=== PATIENT | female | born 1945 | race Caucasian/White ===

== ENCOUNTER → 2017-04-08 | Outpatient (CLI) | payer MEDICARE, OTHER ==
[~2017-04-08] MED LIST: ARTI99.0 OU; ATOR1TAB21 PO; BENI1TAB PO; BUPR15TASR PO; BUPR1TAB53 PO; BUSP10TA PO; CALCTAB68 PO; CRAN200C PO; CYMB60CA3 PO; DIVA250T7 PO; FLOM5CAP PO; METF500T13 PO; NORCOTAB PO; OCUVTAB PO; OMEP20CA3 PO; VITA500C24 PO; platform walker
--- NOTE | 2017-04-08 14:03 | REPMRS ---
Patient History The patient states she had a clinical breast exam in 12/09 Patient is postmenopausal. No known family history of cancer. Digital Woman Screen Mammo: April 08, 2017 - Exam #: [id number] Bilateral CC and MLO view(s) were taken. Technologist: Millie Estrada, Technologist Prior study comparison: July 09, 2015, digital woman screen mammo performed at [facility] to [facility]. March 19, 2014, digital woman screen mammo performed at [facility]. June 30, 2012, digital woman screen mammo performed at [facility] to [facility]. FINDINGS: There are scattered fibroglandular densities. There has been no change in the appearance of the mammogram from the prior studies. There is a mild amount of scattered fibroglandular density which is fairly symmetric. There is no interval development of dominant mass, architectural distortion, or clustered microcalcification suggestive of malignancy. ASSESSMENT: BI-RADS/ACR category 1 mammogram. Negative. Recommendation Routine screening mammogram in 1 year (for women over age 40). This mammogram was interpreted with the aid of an FDA-approved computer-aided dectection system. Electronically Signed By: Francisco Robles MD 04/08/17 0288
== END ==
LOC: M WHC 13:00
PROVIDERS: ATTEND Family Medicine
DX: Z12.31 Encounter for screening mammogram for malignant neoplasm of breast (principal); Z78.0 Asymptomatic menopausal state

== ENCOUNTER → 2018-04-12 | Outpatient (CLI) | payer MEDICARE, OTHER | LOC: M WHC 09:13 | DX: Z12.31 Encounter for screening mammogram for malignant neoplasm of breast (principal); M84.80 Other disorders of continuity of bone, unspecified site; Z78.0 Asymptomatic menopausal state | CPT/HCPCS: 77067 ==

== ENCOUNTER → 2018-04-15 | Outpatient (REF) | payer MEDICARE, OTHER ==
[2018-04-15 14:14] LABS: APPEARANCE, URINE CLEAR (CLEAR); BACTERIA, URINE AUTO NEGATIVE (NEGATIVE); BILIRUBIN, URINE AUTO NEGATIVE (NEGATIVE); BLOOD, URINE BLOOD NEGATIVE (NEGATIVE); COLOR, URINE YELLOW (YELLOW); GLUCOSE, URINE (UA) AUTO NEGATIVE (NEGATIVE); KETONE, URINE AUTO NEGATIVE (NEGATIVE); LEUKOCYTE ESTERASE, URINE AUTO NEGATIVE (NEGATIVE); NITRITE, URINE AUTO NEGATIVE (NEGATIVE); PROTEIN, URINE AUTO NEGATIVE (NEGATIVE); RBC, URINE AUTO 0 /HPF (0-3); SPECIFIC GRAVITY URINE AUTO 1.008 (1.002-1.035); SQUAMOUS EPITHELIAL CELL UR AU 0 /HPF (0-6); UROBILINOGEN, URINE AUTO 0.2 mg/dL (0.0-2.0); WBC, URINE AUTO 0 /HPF (0-3)
== END ==
LOC: M SMT 13:27
DX: R39.15 Urgency of urination (principal)
CPT/HCPCS: 81001

== ENCOUNTER → 2018-05-10 | Outpatient (CLI) | payer MEDICARE, OTHER | LOC: M RAD 08:14 | DX: N31.9 Neuromuscular dysfunction of bladder, unspecified (principal) | CPT/HCPCS: 76775 ==

== ENCOUNTER → 2018-10-07 | Outpatient (CLI) | payer MEDICARE, OTHER ==
[~2018-10-07] MED LIST changes: -BENI1TAB PO; +BENI1TAB3 PO; +FLOM0.4C39 PO; -FLOM5CAP PO
--- NOTE | 2018-10-07 15:00 | NUR ---
Pt seen for modified barium swallow study as she reports feeling like things are getting stuck (pointed to upper esophageal area. Pt also reported esophageal dilation approximately 3 years ago but this jingle writer is unable to find documentation. Pt presents with adequate oral and pharyngeal phase swallow function. However, observed residue at the upper esophagus. MD please consider GI consult d/t observed upper esophageal residue. Pt has indicated that she has not participated in GERD education (diet, behaviors, GERD facts). Pt would benefit from 2-3 sessions to address information directly related to GERD management. Addendum: 10/10/18 at 0840 by JARED BEAN NETTIE Amended: Links added.
--- NOTE | 2018-10-07 18:21 | REP ---
COOKIE SWALLOW The procedure was performed under the direct supervision of Dr. Stinson. The procedure was performed with Libia Dawn from speech pathology present. 5 ml aliquots of thin, pudding, mixed fruit, solid and a barium pill was administered. There is no evidence of penetration or aspiration. The detailed report of this examination will be provided by speech pathology. 1.5 minutes of fluoroscopy time was utilized for this procedure. Reviewed by EVA Dee 10/07/2018 04:12 P Electronically Signed by Ross Stinson MD 10/07/2018 06:13 P
== END ==
LOC: M ST 13:31 → EDSTATUS 14:00
PROVIDERS: ATTEND Physician Assistant Medical
DX: R13.10 Dysphagia, unspecified (principal)

== ENCOUNTER 2018-11-15 09:00 | Day surgery (SDC) | payer MEDICARE, OTHER ==
[~2018-11-15] VITALS: Ht 152.4 cm; Wt 68.9 kg
[~2018-11-15 09:00] MED LIST changes: +AMLO25TA PO; +BARIUM SULFATE 700 MG TABLET (E-Z-DISK) As Ordered ONE; +CVS400CA PO; +E-Z-PAQUE 96% w/w SUSP 176GM BTL As Ordered ONE; +HYDR-3715 PO; +NEPHTAB2 PO; -NORCOTAB PO; +PROPOFOL 500 MG/50 ML VIAL As Ordered ONE; +VARIBAR NECTAR 40% w/v 240ML SUSP BTL As Ordered ONE; +VARIBAR PUDDING 40% w/v 230ML TUBE As Ordered ONE
[2018-11-15] MEDS ORDERED: NS 1,000 ML IV ONE (09:45)
[2018-11-15] MEDS ORDERED: LIDOCAINE 2% INJ 100 MG/5 ML SDV (FOR ANES.) As Ordered ONE (10:51)
--- NOTE | 2018-11-15 10:54 | ROOR ---
Patient Name: Angelic Grove Procedure Date: 11/15/2018 10:37 AM Date of : 1945 Age: 73 Room: [facility] Gender: Female Note Status: Finalized Procedure: Upper GI endoscopy Indications: Oropharyngeal phase dysphagia, Heartburn (Previous empiric cricopharyngeal dilation with 54F Argueta dilator was ineffective (2015)) Providers: Nuno RESENDEZ MD Referring MD: CARMEN HERNANDEZ Requesting Provider: Medicines: Monitored Anesthesia Care Complications: No immediate complications. Procedure: Pre-Anesthesia Assessment: - The heart rate, respiratory rate, oxygen saturations, blood pressure, adequacy of pulmonary ventilation, and response to care were monitored throughout the procedure. The Endoscope was introduced through the mouth, and advanced to the second part of duodenum. The upper GI endoscopy was accomplished without difficulty. The patient tolerated the procedure well. Findings: Very small (insignificant) Hiatal Hernia. The esophagus was normal. The stomach was normal. The examined duodenum was normal. No endoscopic abnormality was evident in the esophagus to explain the patient's complaint of dysphagia. Impression: - Very small (insignificant) Hiatal Hernia. - Normal esophagus. - Normal stomach. - Normal examined duodenum. - No endoscopic esophageal abnormality to explain patient's dysphagia. - No specimens collected. Recommendation: - Use Prilosec (omeprazole) 40 mg PO BID for 3 months. - Observe patient's clinical course. - I anticipate no further need for intervention. Nuno Resendez MD Nuno RESENDEZ MD 11/15/2018 10:53:53 AM Electronically signed by Nuno RESENDEZ MD Number of Addenda: 0 Note Initiated On: 11/15/2018 10:37 AM Estimated Blood Loss: Estimated blood loss: none.
--- NOTE | 2018-11-15 11:12 | ROOR ---
Patient Name: Angelic Grove Procedure Date: 11/15/2018 10:38 AM Date of : 1945 Age: 73 Room: [facility] Gender: Female Note Status: Finalized Procedure: Colonoscopy Indications: High risk colon cancer surveillance: Personal history of colonic polyps, Last colonoscopy: August 2015 Providers: Nuno RESENDEZ MD Referring MD: CARMEN HERNANDEZ Requesting Provider: Medicines: Monitored Anesthesia Care Complications: No immediate complications. Procedure: Pre-Anesthesia Assessment: - The heart rate, respiratory rate, oxygen saturations, blood pressure, adequacy of pulmonary ventilation, and response to care were monitored throughout the procedure. The Colonoscope was introduced through the anus and advanced to the terminal ileum, with identification of the appendiceal orifice and IC valve. The colonoscopy was performed without difficulty. The patient tolerated the procedure well. The quality of the bowel preparation was good. Findings: The perianal and digital rectal examinations were normal. A 5 mm polyp was found in the hepatic flexure. The polyp was sessile. The polyp was removed with a cold snare. Resection and retrieval were complete. Mild sigmoid diverticulosis and small internal hemorrhoids. The exam was otherwise without abnormality on direct and retroflexion views. Impression: - One 5 mm polyp at the hepatic flexure, removed with a cold snare. Resected and retrieved. - Mild sigmoid diverticulosis and small internal hemorrhoids. - The examination was otherwise normal on direct and retroflexion views. Recommendation: - Repeat colonoscopy in 5 years for surveillance. Nuno Resendez MD Nuno RESENDEZ MD 11/15/2018 11:12:31 AM Electronically signed by Nuno RESENDEZ MD Number of Addenda: 0 Note Initiated On: 11/15/2018 10:38 AM Estimated Blood Loss: Estimated blood loss: none.
[2018-11-15 11:40] VITALS: BP 151/81
== END 2018-11-15 11:54 | disposition home or self-care (01) ==
LOC: M OPP 09:00
PROVIDERS: ATTEND Internal Medicine Gastroenterology
DX: K63.5 Polyp of colon (principal); K57.30 Diverticulosis of large intestine without perforation or abscess without bleeding; K64.8 Other hemorrhoids; R13.12 Dysphagia, oropharyngeal phase; R12 Heartburn; K44.9 Diaphragmatic hernia without obstruction or gangrene; Z86.010 Personal history of colon polyps

== ENCOUNTER → 2019-07-04 | Outpatient (CLI) | payer MEDICARE, OTHER ==
[~2019-07-04] MED LIST changes: -ARTI99.0 OU; +ARTIDRO2 OU; -BARIUM SULFATE 700 MG TABLET (E-Z-DISK) As Ordered ONE; -E-Z-PAQUE 96% w/w SUSP 176GM BTL As Ordered ONE; +OMEP-172 PO; -OMEP20CA3 PO; -PROPOFOL 500 MG/50 ML VIAL As Ordered ONE; -VARIBAR NECTAR 40% w/v 240ML SUSP BTL As Ordered ONE; -VARIBAR PUDDING 40% w/v 230ML TUBE As Ordered ONE
--- NOTE | 2019-07-04 12:03 | REPMRS ---
Patient History The patient states she had a clinical breast exam in March 2019.No known family history of cancer. 3D TOMOSYNTHESIS WAS PERFORMED. The [facility] lifetime risk for breast cancer is 3.4%. Digital Woman Screen Mammo: July 04, 2019 - Exam #: [id number] Bilateral CC and MLO view(s) were taken. Technologist: Barbi Daly, Technologist Prior study comparison: April 12, 2018, bilateral digital woman screen mammo performed at [facility] [place]. April 08, 2017, digital woman screen mammo performed at [facility] [place]. FINDINGS: There are scattered fibroglandular densities. There has been no change in the appearance of the mammogram from the prior studies. There is a mild amount of residual fibroglandular tissue which is fairly symmetric. There is no interval development of dominant mass, architectural distortion, or clustered microcalcification suggestive of malignancy. Assessment: BI-RADS/ACR category 1 mammogram. Negative Mammogram. Recommendation Routine screening mammogram in 1 year (for women over age 40). This mammogram was interpreted with the aid of an FDA-approved computer-aided dectection system. Electronically Signed By: Syed Johnson MD 07/04/19 [id number]
== END ==
LOC: M WHC 10:01
PROVIDERS: ATTEND Nurse Practitioner
DX: Z12.31 Encounter for screening mammogram for malignant neoplasm of breast (principal)

== ENCOUNTER → 2020-05-23 | Outpatient (CLI) | payer MEDICARE, OTHER ==
[~2020-05-23] MED LIST changes: -ARTIDRO2 OU; -OMEP-172 PO; +OMEP1CAP73 PO; +POLYOPD OU
--- NOTE | 2020-05-28 12:56 | DEXA ---
AP SPINE L1 - L4 1.055 -1.1 0.6 LT FEMUR TOTAL 0.855 -1.2 0.5 LT NECK 0.821 -1.6 0.3 RT FEMUR TOTAL 0.912 -0.8 0.9 RT NECK 0.829 -1.5 0.4 TOTAL BODY TOTAL OTHER COMMENTS: There is low bone density of the spine and hips. The decreased density of the spine does represent significant change. The decreased density of the left hip does represent significant change. The decreased density of the right hip does not represent significant change. The density of the spine has decreased 5.6% since the initial exam on 01/20/2002. The decreased 3.2% since the most recent exam on 04/12/2018. The density of the left hip has decreased 10.7% since the initial exam on 01/20/2002. The density of the left hip has decreased 5.4% since the most recent exam on 04/12/2018. The density of the right hip has decreased 4.5% since the initial exam on 01/20/2002. The density of the right hip has decreased 1.3% since the most recent exam on 04/12/2018. FOLLOW-UP: Recommendation for the next bone density exam: 2 years. JADEN
== END ==
LOC: M WHC 12:21
PROVIDERS: ATTEND Nurse Practitioner
DX: M85.89 Other specified disorders of bone density and structure, multiple sites (principal)

== ENCOUNTER → 2020-07-12 | Outpatient (CLI) | payer MEDICARE, OTHER ==
--- NOTE | 2020-07-12 13:59 | REPMRS ---
Patient History The patient states she had a clinical breast exam in 01/2020 No known family history of cancer. Digital Woman Screen Mammo: July 12, 2020 - Exam #: [id number] Bilateral CC and MLO view(s) were taken. Technologist: Millie Estrada, Technologist Prior study comparison: July 04, 2019, bilateral digital woman screen mammo performed at [facility]. April 12, 2018, bilateral digital woman screen mammo performed at [facility]. April 08, 2017, digital woman screen mammo performed at [facility]. FINDINGS: There are scattered fibroglandular densities. The [employer] volumetric breast density category is:B. There has been no change in the appearance of the mammogram from the prior studies. There is a mild amount of scattered fibroglandular density which is fairly symmetric. There is no interval development of dominant mass, architectural distortion, or grouped microcalcification suggestive of malignancy. 3-D tomosynthesis shows no additional findings. Assessment: BI-RADS/ACR category 2 mammogram. Benign Findings. Recommendation Routine screening mammogram in 1 year. This patient's [facility] Lifetime Breast Cancer RIsk is estimated at 3.2 %. This mammogram was interpreted with the aid of an FDA-approved computer-aided dectection system. Electronically Signed By: Francisco Robles MD 07/12/20 [id number]
== END ==
LOC: M WHC 11:02
PROVIDERS: ATTEND Nurse Practitioner
DX: Z12.31 Encounter for screening mammogram for malignant neoplasm of breast (principal)

== ENCOUNTER 2020-12-16 21:00 | Emergency (ER) | payer MEDICARE, OTHER ==
[2020-12-16] MEDS ORDERED: TOPI25TA10 (21:17)
[2020-12-16] MEDS ORDERED: ESCITALOPRAM (21:17)
[2020-12-16] MEDS ORDERED: PARO5TAB (21:17)
[2020-12-16] MEDS ORDERED: ASPI81CH33 PO (21:17)
[2020-12-16 21:42] LABS: BASO % 0.1 % (0.0-1.0); EOS % 0.1 % (0.0-3.0); HEMOGLOBIN 12.6 g/dl (12.0-15.5); LYMPH # 0.4 10^3/uL (1.5-5.0); LYMPH % 2.8 % (24.0-44.0); MEAN CORPUSCULAR HEMOGLOBIN 31.3 pg (27.0-33.0); MEAN CORPUSCULAR HGB CONC 33.2 g/dl (32.0-36.5); MEAN CORPUSCULAR VOLUME 94.3 fl (80.0-96.0); MONO % 7.3 % (2.0-8.0); NEUTROPHILS % 89.4 % (36.0-66.0); PLATELET COUNT, AUTOMATED 198 10^3/uL (150-450); RED BLOOD COUNT 4.03 10^6/uL (4.00-5.40); WHITE BLOOD COUNT 13.4 10^3/uL (4.0-10.0)
[2020-12-16 21:54] LABS: ALBUMIN 3.7 GM/DL (3.2-5.2); ALT/SGPT 25 U/L (12-78); BILIRUBIN,DIRECT < 0.1 MG/DL (0.0-0.2); BILIRUBIN,TOTAL 0.4 MG/DL (0.2-1.0); BLOOD UREA NITROGEN 19 MG/DL (7-18); CALCIUM LEVEL 8.7 MG/DL (8.8-10.2); CARBON DIOXIDE LEVEL 22 MEQ/L (21-32); CHLORIDE LEVEL 104 MEQ/L (98-107); CK-MB VALUE MASS < 1.0 NG/ML (<3.6); CPK CREATINE PHOSPHOKINASE 69 U/L (26-192); CREATININE FOR GFR 1.17 MG/DL (0.55-1.30); GLUCOSE, FASTING 203 MG/DL (70-100); LIPASE 63 U/L (73-393); MB/CK RELATIVE INDEX 1.45 (< OR =4); POTASSIUM SERUM 4.3 MEQ/L (3.5-5.1); SODIUM LEVEL 135 MEQ/L (136-145); TOTAL PROTEIN 7.3 GM/DL (6.4-8.2); TROPONIN I < 0.02 NG/ML (< 0.10)
[2020-12-16] MEDS ORDERED: NS 1,000 ML IV ONE (22:20)
--- NOTE | 2020-12-16 22:43 | REPVR ---
PROCEDURE INFORMATION: Exam: XR Abdomen Exam date and time: 12/16/2020 10:05 PM Age: 75 years old Clinical indication: Abdominal pain; Acute; Additional info: Exmane gas pattern TECHNIQUE: Imaging protocol: XR of the abdomen. Views: 2 Views. Upright and supine views. COMPARISON: CT ABD PELVIS WITH CONTRAST 04/07/2016 6:37 PM FINDINGS: Gastrointestinal tract: Mild gas throughout the GI tract without abnormal dilatation. No abnormal air-fluid levels. Intraperitoneal space: Normal. No free air. Vasculature: Multiple phleboliths are noted in the pelvis, right greater than left. Bones/joints: Degenerative changes noted in the lower lumbar spine. IMPRESSION: Negative abdomen with mild gas which is within normal limits. Electronically signed by: Kuldeep Larsen On 12/16/2020 22:42:57 PM
[2020-12-16] MEDS: GASTROGRAFIN SOLUTION 30ML PO SCH ×2 (22:47→23:15)
[2020-12-17] MEDS ORDERED: ISOVUE-370 76% 100ML VIAL As Ordered ONE (00:05)
--- NOTE | 2020-12-17 00:57 | REPVR ---
PROCEDURE INFORMATION: Exam: CT Abdomen And Pelvis With Contrast Exam date and time: 12/16/2020 10:22 PM Age: 75 years old Clinical indication: Abdominal pain; Localized; Left lower quadrant (llq); Additional info: Llq pain with diarrhea TECHNIQUE: Imaging protocol: Computed tomography of the abdomen and pelvis with contrast. Radiation optimization: All CT scans at this facility use at least one of these dose optimization techniques: automated exposure control; mA and/or kV adjustment per patient size (includes targeted exams where dose is matched to clinical indication); or iterative reconstruction. Contrast material: ISO; Contrast volume: 100 ml; Contrast route: INTRAVENOUS (IV); Other contrast: Oral, ggraphin, 600; COMPARISON: CT ABD PELVIS WITH CONTRAST 04/07/2016 6:37 PM FINDINGS: Lungs: Minimal bibasilar bullous change with mild interstitial coarsening and minimal fibro-atelectatic change. Mediastinal space: Minimal hiatal hernia. Liver: Normal. No mass. Gallbladder and bile ducts: Normal. No calcified stones. No ductal dilation. Pancreas: Normal. No ductal dilation. Spleen: Normal. No splenomegaly. Adrenal glands: Normal. No mass. Kidneys and ureters: There is a right renal cyst measuring 6 mm which is too small to characterize. Stomach and bowel: There are diverticula projecting from the duodenal sweep. There is mild colonic wall thickening beginning in the distal transverse colon and extending to the proximal sigmoid and to a lesser degree remaining sigmoid and rectum. Appendix: There are no changes of appendicitis. A normal appendix is not seen. Intraperitoneal space: Unremarkable. No free air. No significant fluid collection. Vasculature: There is mild calcification of the abdominal aorta with extension into the iliac arteries. Lymph nodes: Unremarkable. No enlarged lymph nodes. Urinary bladder: Unremarkable as visualized. Reproductive: Unremarkable as visualized. Bones/joints: Unremarkable. No acute fracture. Soft tissues: Unremarkable. IMPRESSION: 1. Mild nonspecific left colitis, greatest involving the splenic flexure and descending colon which is new since 04/07/2016. 2. Minimal hiatal hernia, new since the prior study. 3. Otherwise negative CT abdomen/pelvis COMMENTS: Consistent with the [place] [employer]'s Incidental Findings Committee white paper (J Am Corry Radiol 2018): Any incidental renal lesion less than 1 cm or classified as too small to characterize, or any incidental cystic renal lesion characterized as simple-appearing, is likely benign. No follow-up imaging is recommended for these lesions per consensus recommendations based on imaging criteria. Electronically signed by: Kuldeep Larsen On 12/17/2020 00:56:47 AM
[2020-12-17] MEDS ORDERED: ACET325C5 PO (01:51)
[2020-12-17] MEDS ORDERED: AZIT500T5 PO (01:51)
[2020-12-17 02:00] VITALS: BP 161/87
== END 2020-12-17 02:16 | disposition home or self-care (01) ==
LOC: M ED 21:00
DX: K52.9 Noninfective gastroenteritis and colitis, unspecified (principal); E11.9 Type 2 diabetes mellitus without complications; I10 Essential (primary) hypertension; Z79.899 Other long term (current) drug therapy; Z79.84 Long term (current) use of oral hypoglycemic drugs; Z79.82 Long term (current) use of aspirin; Z88.1 Allergy status to other antibiotic agents; Z88.2 Allergy status to sulfonamides
CPT/HCPCS: 74019; 74177; 80048; 80076; 81001; 82550; 82553; 83605; 83690; 84484; 85025; 87088; 87186; 93041; 96360; 96361; 99285; Q9963; Q9967

== ENCOUNTER → 2021-02-07 | Outpatient (REF) | payer MEDICARE, OTHER ==
[~2021-02-07] MED LIST changes: +ACET325C5 PO; +ASPI81CH33 PO; +AZIT500T5 PO; +ESCITALOPRAM; +PARO5TAB; +TOPI25TA10
== END ==
LOC: M WUC 16:46
PROVIDERS: ATTEND Physician Assistant
DX: R10.30 Lower abdominal pain, unspecified (principal)

== ENCOUNTER → 2021-02-27 | Outpatient (CLI) | payer MEDICARE, OTHER ==
[~2021-02-27] MED LIST changes: -CYMB60CA3 PO; +CYMB60CA4 PO
== END ==
LOC: M LAB 14:07
PROVIDERS: ATTEND Physician Assistant Medical
DX: R41.0 Disorientation, unspecified (principal); R29.6 Repeated falls

== ENCOUNTER → 2021-03-04 | Outpatient (REF) | payer MEDICARE, OTHER ==
[~2021-03-04] MED LIST changes: +CYMB60CA3 PO; -CYMB60CA4 PO
== END ==
LOC: M LAB REF 09:24
PROVIDERS: ATTEND Physician Assistant
DX: N39.0 Urinary tract infection, site not specified (principal)

== ENCOUNTER → 2021-03-15 | Outpatient (REF) | payer MEDICARE, OTHER | LOC: M WUC 19:37 | PROVIDERS: ATTEND Physician Assistant | DX: N39.0 Urinary tract infection, site not specified (principal) ==

== ENCOUNTER → 2021-03-18 | Outpatient (CLI) | payer MEDICARE, OTHER ==
--- NOTE | 2021-04-01 13:26 | SLEEPMSLT ---
DATE: 03/19/2021 INTERPRETATION: After overnight polysomnography, a multiple sleep latency test was performed. Patient was given three nap opportunities. No sleep was recorded in any of these naps. Fourth nap was not performed due to lack of any sleep in first three naps. CONCLUSION: This is a normal multiple sleep latency test. No sleep was achieved in any of the naps.
--- NOTE | 2021-04-01 13:26 | SLEEP ---
DATE: 03/18/2021 REFERRING PHYSICIAN: Dr. Jai Olvera. INTERPRETATION: Overnight polysomnography was performed for evaluation of excessive daytime sleepiness. A total of 7 hours and 46 minutes of data was reviewed with decent sleep efficiency and slightly short sleep onset latency. Absence of stage N3 sleep was noted with decreased REM sleep. The oxygen saturation remained 92% or above throughout the study. Moderate snoring was observed. No respiratory events were noted. EKG revealed normal sinus rhythm with mean heart rate of 65 beats per minute. EEG remained normal throughout. Excessive periodic limb movements of sleep were noted, 41.5 per hour. CONCLUSIONS: 1. Primary snoring, no polysomnographic evidence of sleep apnea. 2. Periodic limb movements of sleep which are nonspecific but can be seen with restless leg syndrome.
== END ==
LOC: M SLEEP 18:29
PROVIDERS: ATTEND Psychiatry & Neurology Neurology
DX: R55 Syncope and collapse (principal)

== ENCOUNTER → 2021-03-19 | Outpatient (REF) | payer MEDICARE, OTHER | LOC: M LAB REF 03-18 08:00 | PROVIDERS: ATTEND Psychiatry & Neurology Neurology | DX: G47.61 Periodic limb movement disorder (principal); R53.83 Other fatigue; R29.6 Repeated falls; R55 Syncope and collapse; R06.83 Snoring ==

== ENCOUNTER → 2021-07-11 | Outpatient (CLI) | payer MEDICARE, OTHER ==
[~2021-07-11] MED LIST changes: -CYMB60CA3 PO; +CYMB60CA4 PO
[2021-07-11 17:30] LABS: APPEARANCE, URINE CLOUDY (CLEAR); BACTERIA, URINE AUTO 1+ (NEGATIVE); BILIRUBIN, URINE AUTO NEGATIVE (NEGATIVE); BLOOD, URINE BLOOD NEGATIVE (NEGATIVE); COLOR, URINE YELLOW (YELLOW); GLUCOSE, URINE (UA) AUTO NEGATIVE (NEGATIVE); KETONE, URINE AUTO TRACE mg/dL (NEGATIVE); LEUKOCYTE ESTERASE, URINE AUTO 2+ (NEGATIVE); MUCUS, URINE SMALL (NEGATIVE); NITRITE, URINE AUTO POSITIVE (NEGATIVE); PROTEIN, URINE AUTO NEGATIVE (NEGATIVE); RBC, URINE AUTO 2 /HPF (0-3); SPECIFIC GRAVITY URINE AUTO 1.018 (1.002-1.035); SQUAMOUS EPITHELIAL CELL UR AU 1 /HPF (0-6); WBC, URINE AUTO TNTC /HPF (0-3)
== END ==
LOC: M PLALAB 15:56
PROVIDERS: ATTEND Advanced Practice Midwife
DX: R35.0 Frequency of micturition (principal)

== ENCOUNTER → 2021-07-11 | Outpatient (CLI) | payer MEDICARE, OTHER | LOC: M WHC 15:00 | PROVIDERS: ATTEND Advanced Practice Midwife | DX: N64.4 Mastodynia (principal); R35.0 Frequency of micturition | CPT/HCPCS: 36415; 77066; 81001; 87088; 87186; G0279 ==

== ENCOUNTER → 2021-07-30 | Outpatient (REF) | payer MEDICARE, OTHER | LOC: M WUC 21:33 | PROVIDERS: ATTEND Physician Assistant | DX: N39.0 Urinary tract infection, site not specified (principal) ==

== ENCOUNTER 2021-09-23 15:01 | Emergency (ER) | payer MEDICARE, OTHER ==
[~2021-09-23] VITALS: Ht 152.4 cm; Wt 68.2 kg
[2021-09-23] MEDS ORDERED: ACETAMINOPHEN TAB 650MG DOSE (2X325MG) PO ONE (15:40)
[2021-09-23 17:18] VITALS: BP 129/68
== END 2021-09-23 17:18 | disposition home or self-care (01) ==
LOC: M ED 15:01
DX: S09.90XA Unspecified injury of head, initial encounter (principal); W22.8XXA Striking against or struck by other objects, initial encounter; W01.0XXA Fall on same level from slipping, tripping and stumbling without subsequent striking against object, initial encounter; E11.9 Type 2 diabetes mellitus without complications; I10 Essential (primary) hypertension; Z79.84 Long term (current) use of oral hypoglycemic drugs; Z79.899 Other long term (current) drug therapy; Y92.012 Bathroom of single-family (private) house as the place of occurrence of the external cause; Y93.9 Activity, unspecified; Y99.9 Unspecified external cause status

== ENCOUNTER → 2021-10-26 | Outpatient (REF) | payer MEDICARE, OTHER | LOC: M WUC 17:58 | DX: R30.0 Dysuria (principal) ==

== ENCOUNTER → 2021-12-13 | Outpatient (REF) | payer MEDICARE, OTHER | LOC: M LAB REF 19:02 | PROVIDERS: ATTEND Physician Assistant Medical | DX: R30.0 Dysuria (principal) ==

== ENCOUNTER → 2022-01-21 | Outpatient (CLI) | payer MEDICARE, OTHER | LOC: M WUC 15:52 | PROVIDERS: ATTEND Physician Assistant | DX: M25.551 Pain in right hip (principal) ==

== ENCOUNTER → 2022-07-28 | Outpatient (CLI) | payer MEDICARE, OTHER ==
[~2022-07-28] MED LIST changes: -BENI1TAB3 PO; +OLME20TA55 PO
[2022-07-28 13:31] LABS: HEMOGLOBIN A1c 5.8 % (4.0-6.0)
== END ==
LOC: M LAB 11:55
PROVIDERS: ATTEND Physician Assistant
DX: E11.311 Type 2 diabetes mellitus with unspecified diabetic retinopathy with macular edema (principal)

== ENCOUNTER → 2023-03-10 | Outpatient (REF) | payer MEDICARE, OTHER ==
[~2023-03-10] MED LIST changes: +ARTIDRO4 OU; -POLYOPD OU
== END ==
LOC: M LAB REF 16:20
PROVIDERS: ATTEND Student in an Organized Health Care Education/Training Program
DX: R30.0 Dysuria (principal)

== ENCOUNTER → 2023-04-02 | Outpatient (CLI) | payer MEDICARE, OTHER ==
[2023-04-02 17:30] LABS: BASO % 0.4 % (0.0-1.0); EOS # 0.4 10^3/uL (0.0-0.5); EOS % 6.1 % (0.0-3.0); HEMATOCRIT 38.1 % (36.0-47.0); HEMOGLOBIN 12.4 g/dl (12.0-15.5); LYMPH # 1.3 10^3/uL (1.5-5.0); LYMPH % 18.8 % (24.0-44.0); MEAN CORPUSCULAR HEMOGLOBIN 31.6 pg (27.0-33.0); MEAN CORPUSCULAR HGB CONC 32.5 g/dl (32.0-36.5); MEAN CORPUSCULAR VOLUME 96.9 fl (80.0-96.0); MONO # 0.6 10^3/uL (0.0-0.8); MONO % 8.7 % (2.0-8.0); NEUTROPHILS # 4.6 10^3/uL (1.5-8.5); NEUTROPHILS % 65.7 % (36.0-66.0); PLATELET COUNT, AUTOMATED 248 10^3/uL (150-450); RED BLOOD COUNT 3.93 10^6/uL (4.00-5.40)
[2023-04-02 17:34] LABS: APPEARANCE, URINE CLEAR (CLEAR); BACTERIA, URINE AUTO NEGATIVE (NEGATIVE); BILIRUBIN, URINE AUTO NEGATIVE (NEGATIVE); BLOOD, URINE BLOOD NEGATIVE (NEGATIVE); COLOR, URINE YELLOW (YELLOW); GLUCOSE, URINE (UA) AUTO NEGATIVE (NEGATIVE); KETONE, URINE AUTO NEGATIVE (NEGATIVE); LEUKOCYTE ESTERASE, URINE AUTO NEGATIVE (NEGATIVE); NITRITE, URINE AUTO NEGATIVE (NEGATIVE); PROTEIN, URINE AUTO NEGATIVE (NEGATIVE); RBC, URINE AUTO 0 /HPF (0-3); SPECIFIC GRAVITY URINE AUTO 1.009 (1.002-1.035); SQUAMOUS EPITHELIAL CELL UR AU 1 /HPF (0-6); UROBILINOGEN, URINE AUTO 0.2 mg/dL (0.0-2.0); WBC, URINE AUTO 0 /HPF (0-3)
[2023-04-02 17:45] LABS: ERYTHROCYTE SEDIMENTATION RATE 31 mm/hr (0-30)
[2023-04-02 17:50] LABS: C REACTIVE PROTEIN QUANTITATIV < 0.40 MG/DL (<1.0); CREATININE,RANDOM URINE 44.3 MG/DL
[2023-04-02 17:52] LABS: ALKALINE PHOSPHATASE 92 U/L (46-116); ALT/SGPT 43 U/L (7.0-40); AST/SGOT 25 U/L (<34); BILIRUBIN,TOTAL 0.4 MG/DL (0.3-1.2); BLOOD UREA NITROGEN 19 MG/DL (9-23); CALCIUM LEVEL 9.1 MG/DL (8.3-10.6); CARBON DIOXIDE LEVEL 27 MMOL/L (20-31); CHLORIDE LEVEL 102 MMOL/L (98-107); COMPLEMENT C3 94.1 MG/DL (90.0-170.0); COMPLEMENT C4 18.1 MG/DL (12-36); CREATININE FOR GFR 0.96 MG/DL (0.55-1.30); GLUCOSE, FASTING 90 MG/DL (74-106); IMMUNOGLOBULIN A 119.3 MG/DL (40-350); IMMUNOGLOBULIN G 739 MG/DL (650-1600); IMMUNOGLOBULIN M 93.7 MG/DL (50-300); POTASSIUM SERUM 4.2 MMOL/L (3.5-5.1); SODIUM LEVEL 133 MMOL/L (136-145); TOTAL PROTEIN 6.9 G/DL (5.7-8.2); TOTAL PROTEIN,RANDOM URINE < 6.0 MG/DL (0.0-14.0)
[2023-04-02 17:54] LABS: TOTAL 25(OH) VITAMIN D 51.6 NG/ML (20.0-100.0)
[2023-04-02 18:33] LABS: HEPATITIS B CORE ANTIBODY IGM NEGATIVE (NEGATIVE); HEPATITIS C VIRUS ABY INDEX 0.17 INDEX (<0.8)
[2023-04-09 12:08] LABS: ANGIOTENSIN 1 CONVERTING ENZYM 80 U/L (14-82); COMPLEMENT TOTAL (CH50) > 60 U/mL (>41); HLA-B27 Negative (.); VITAMIN D 1,25 DIHYDROXY 41.4 pg/mL (24.8-81.5)
== END ==
LOC: M WUC 13:31
PROVIDERS: ATTEND Internal Medicine Rheumatology
DX: M51.37 Other intervertebral disc degeneration, lumbosacral region (principal); M19.039 Primary osteoarthritis, unspecified wrist; M20.11 Hallux valgus (acquired), right foot; M20.12 Hallux valgus (acquired), left foot; R76.8 Other specified abnormal immunological findings in serum; M25.50 Pain in unspecified joint; Z79.899 Other long term (current) drug therapy

== ENCOUNTER → 2023-06-04 | Outpatient (REF) | payer MEDICARE, OTHER | LOC: M SFHCWAGY 16:59 | PROVIDERS: ATTEND Nurse Practitioner Family | DX: Z12.4 Encounter for screening for malignant neoplasm of cervix (principal); R10.2 Pelvic and perineal pain; N95.2 Postmenopausal atrophic vaginitis ==

== ENCOUNTER → 2023-06-10 | Outpatient (CLI) | payer MEDICARE, OTHER | LOC: M WHC 10:40 | PROVIDERS: ATTEND Nurse Practitioner Family | DX: N85.00 Endometrial hyperplasia, unspecified (principal); R10.2 Pelvic and perineal pain ==

== ENCOUNTER → 2023-07-23 | Outpatient (REF) | payer MEDICARE, OTHER ==
[~2023-07-23] MED LIST changes: +BUPR300T92 PO; +CIPR250T3 PO; +D32000CA PO; +EVEN10003 PO; +FLUC150T9 PO; +IRON1TAB2 PO; +MELO7.5T35 PO; +OCUV1CAP4 PO; +OMEP40CA5 PO; +POLY510P14 PO; +PROBCAP14 PO; +SIME125T14 PO; -TOPI25TA10; +TOPI25TA10 PO
[2023-07-23 15:04] LABS: TOTAL VOLUME, URINE 2015 ML
[2023-07-23 15:05] LABS: URINE TOTAL PROTEIN < 6.0 MG/DL (0-14)
== END ==
LOC: M LAB REF 13:43
PROVIDERS: ATTEND Internal Medicine Hematology & Oncology
DX: R77.9 Abnormality of plasma protein, unspecified (principal)

== ENCOUNTER → 2023-07-29 | Outpatient (CLI) | payer MEDICARE, OTHER ==
[~2023-07-29] MED LIST changes: +GASTROGRAFIN SOLUTION 30ML As Ordered ONE; +ISOVUE-370 76% 100ML VIAL As Ordered ONE
== END ==
LOC: M RAD 14:20
PROVIDERS: ATTEND Specialist
DX: R10.2 Pelvic and perineal pain (principal); K59.00 Constipation, unspecified
CPT/HCPCS: 74178; Q9963; Q9967

== ENCOUNTER → 2023-08-25 | Outpatient (REF) | payer MEDICARE, OTHER ==
[~2023-08-25] MED LIST changes: +DULO1CAP5; -GASTROGRAFIN SOLUTION 30ML As Ordered ONE; -ISOVUE-370 76% 100ML VIAL As Ordered ONE; +MEMA1TAB3
[2023-08-25 17:39] LABS: APPEARANCE, URINE CLEAR (CLEAR); BACTERIA, URINE AUTO NEGATIVE (NEGATIVE); BILIRUBIN, URINE AUTO NEGATIVE (NEGATIVE); BLOOD, URINE BLOOD NEGATIVE (NEGATIVE); COLOR, URINE YELLOW (YELLOW); GLUCOSE, URINE (UA) AUTO NEGATIVE (NEGATIVE); KETONE, URINE AUTO NEGATIVE (NEGATIVE); LEUKOCYTE ESTERASE, URINE AUTO NEGATIVE (NEGATIVE); MUCUS, URINE SMALL (NEGATIVE); NITRITE, URINE AUTO NEGATIVE (NEGATIVE); PROTEIN, URINE AUTO NEGATIVE (NEGATIVE); RBC, URINE AUTO 0 /HPF (0-3); SPECIFIC GRAVITY URINE AUTO 1.012 (1.002-1.035); SQUAMOUS EPITHELIAL CELL UR AU 0 /HPF (0-6); UROBILINOGEN, URINE AUTO 0.2 mg/dL (0.0-2.0); WBC, URINE AUTO 2 /HPF (0-3)
== END ==
LOC: M SMT 17:04
PROVIDERS: ATTEND Nurse Practitioner Family
DX: N39.0 Urinary tract infection, site not specified (principal)

== ENCOUNTER → 2023-10-26 | Outpatient (CLI) | payer MEDICARE, OTHER ==
[~2023-10-26] MED LIST changes: +BIOT5TAB3 PO; -DULO1CAP5; +DULO1CAP5 PO; +EQL50TAB2 PO; -MEMA1TAB3; +MEMA1TAB3 PO
== END ==
LOC: M RAD 09-30 06:43
PROVIDERS: ATTEND Physician Assistant
DX: R14.0 Abdominal distension (gaseous) (principal); R11.0 Nausea; R10.819 Abdominal tenderness, unspecified site

== ENCOUNTER → 2024-01-20 | Outpatient (CLI) | payer MEDICARE, OTHER ==
[~2024-01-20] MED LIST changes: +BUPR-597 PO; -BUPR300T92 PO; +CALC600T17 PO; +PARO20TA3 PO; +POLY17PO18 PO; +SIME80CH5 PO
[2024-01-20 17:19] LABS: BASO % 0.3 % (0.0-1.0); EOS # 0.2 10^3/uL (0.0-0.5); EOS % 3.7 % (0.0-3.0); HEMATOCRIT 38.7 % (36.0-47.0); HEMOGLOBIN 12.6 g/dl (12.0-15.5); LYMPH # 1.1 10^3/uL (1.5-5.0); LYMPH % 17.5 % (24.0-44.0); MEAN CORPUSCULAR HEMOGLOBIN 31.6 pg (27.0-33.0); MEAN CORPUSCULAR HGB CONC 32.6 g/dl (32.0-36.5); MONO # 0.4 10^3/uL (0.0-0.8); MONO % 6.7 % (2.0-8.0); NEUTROPHILS # 4.3 10^3/uL (1.5-8.5); NEUTROPHILS % 71.3 % (36.0-66.0); PLATELET COUNT, AUTOMATED 221 10^3/uL (150-450); RED BLOOD COUNT 3.99 10^6/uL (4.00-5.40)
[2024-01-20 17:21] LABS: ALBUMIN 3.7 G/DL (3.2-5.2); BILIRUBIN,TOTAL 0.4 MG/DL (0.3-1.2); CALCIUM LEVEL 8.8 MG/DL (8.3-10.6); CREATININE FOR GFR 1.07 MG/DL (0.55-1.30); GLOMERULAR FILTRATION RATE 52.8 (>39); POTASSIUM SERUM 4.4 MMOL/L (3.5-5.1); TOTAL PROTEIN 6.4 G/DL (5.7-8.2)
== END ==
LOC: M LRY 14:04
PROVIDERS: ATTEND Physician Assistant Medical
DX: R10.13 Epigastric pain (principal)

== ENCOUNTER → 2024-02-22 | Outpatient (CLI) | payer MEDICARE, OTHER | LOC: M RAD 08:50 | PROVIDERS: ATTEND Physician Assistant Medical | DX: R10.13 Epigastric pain (principal); R11.0 Nausea ==

== ENCOUNTER 2024-03-01 09:21 | Day surgery (SDC) | payer MEDICARE, OTHER ==
[~2024-03-01] VITALS: Ht 152.4 cm; Wt 66.8 kg
[2024-03-01] MEDS: NS 1,000 ML IV ONE (10:18)
[2024-03-01] MEDS ORDERED: KETOROLAC 60MG 2ML VIAL As Ordered ONE (11:44)
[2024-03-01] MEDS ORDERED: fentaNYL 100 MCG/2 ML INJECTION As Ordered ONE (11:54)
[2024-03-01] MEDS ORDERED: propofoL 200 MG/20 ML VIAL As Ordered ONE (12:09)
[2024-03-01] MEDS ORDERED: LIDOCAINE 2% 100MG/5ML SDV (FOR ANES.) As Ordered ONE (12:09)
[2024-03-01 12:45] VITALS: TEMP 97.5
[2024-03-01 13:04] VITALS: BP 133/84; O2SAT 99
== END 2024-03-01 13:13 | disposition home or self-care (01) ==
LOC: M OPP 09:21
PROVIDERS: ATTEND Internal Medicine Gastroenterology
DX: Z12.11 Encounter for screening for malignant neoplasm of colon (principal); Z86.010 Personal history of colon polyps; K63.5 Polyp of colon; K63.89 Other specified diseases of intestine; K64.8 Other hemorrhoids; K57.30 Diverticulosis of large intestine without perforation or abscess without bleeding; R10.13 Epigastric pain; R11.0 Nausea; E11.9 Type 2 diabetes mellitus without complications; Z79.02 Long term (current) use of antithrombotics/antiplatelets; Z79.1 Long term (current) use of non-steroidal anti-inflammatories (NSAID); Z79.811 Long term (current) use of aromatase inhibitors; Z79.84 Long term (current) use of oral hypoglycemic drugs; Z79.899 Other long term (current) drug therapy; Z88.2 Allergy status to sulfonamides
CPT/HCPCS: 43235; 45380; 45385; 88305; J1885; J3010

== ENCOUNTER → 2024-03-29 | Outpatient (REF) | payer MEDICARE, OTHER | LOC: M LAB REF 10:13 | PROVIDERS: ATTEND Physician Assistant | DX: N30.00 Acute cystitis without hematuria (principal) ==

== ENCOUNTER → 2024-05-24 | Outpatient (REF) | payer MEDICARE, OTHER ==
[~2024-05-24] MED LIST changes: +DULO1CAP6; +FAMO40TA3; +MEMA1TAB3
[2024-05-24 13:09] LABS: APPEARANCE, URINE CLOUDY (CLEAR); BACTERIA, URINE AUTO 2+ (NEGATIVE); BILIRUBIN, URINE AUTO NEGATIVE (NEGATIVE); BLOOD, URINE BLOOD NEGATIVE (NEGATIVE); COLOR, URINE YELLOW (YELLOW); GLUCOSE, URINE (UA) AUTO NEGATIVE (NEGATIVE); KETONE, URINE AUTO TRACE mg/dL (NEGATIVE); LEUKOCYTE ESTERASE, URINE AUTO 3+ (NEGATIVE); MUCUS, URINE SMALL (NEGATIVE); NITRITE, URINE AUTO NEGATIVE (NEGATIVE); PROTEIN, URINE AUTO 1+ mg/dL (NEGATIVE); RBC, URINE AUTO 3 /HPF (0-3); SPECIFIC GRAVITY URINE AUTO 1.023 (1.002-1.035); SQUAMOUS EPITHELIAL CELL UR AU 3 /HPF (0-6); WBC, URINE AUTO TNTC /HPF (0-3)
== END ==
LOC: M SMT 12:27
PROVIDERS: ATTEND Nurse Practitioner Family
DX: N31.9 Neuromuscular dysfunction of bladder, unspecified (principal)

== ENCOUNTER → 2024-06-29 | Outpatient (REF) | payer MEDICARE, OTHER ==
[2024-06-29 16:44] LABS: BASO % 0.3 % (0.0-1.0); EOS # 0.3 10^3/uL (0.0-0.5); EOS % 4.4 % (0.0-3.0); HEMATOCRIT 38.9 % (36.0-47.0); HEMOGLOBIN 12.8 g/dl (12.0-15.5); LYMPH # 1.3 10^3/uL (1.5-5.0); LYMPH % 18.4 % (24.0-44.0); MEAN CORPUSCULAR HEMOGLOBIN 31.6 pg (27.0-33.0); MEAN CORPUSCULAR HGB CONC 32.9 g/dl (32.0-36.5); MONO # 0.6 10^3/uL (0.0-0.8); NEUTROPHILS # 4.8 10^3/uL (1.5-8.5); NEUTROPHILS % 68.6 % (36.0-66.0); PLATELET COUNT, AUTOMATED 226 10^3/uL (150-450); RED BLOOD COUNT 4.05 10^6/uL (4.00-5.40)
[2024-06-29 16:50] LABS: ERYTHROCYTE SEDIMENTATION RATE 29 mm/hr (0-30)
[2024-06-29 17:16] LABS: C REACTIVE PROTEIN QUANTITATIV < 0.50 MG/DL (<1.0)
[2024-06-29 17:17] LABS: ALBUMIN 4.1 G/DL (3.2-5.2); ALKALINE PHOSPHATASE 130 U/L (35-104); ALT/SGPT 34 U/L (7.0-40); AST/SGOT 21 U/L (<34); BILIRUBIN,TOTAL 0.4 MG/DL (0.3-1.2); BLOOD UREA NITROGEN 23 MG/DL (9-23); CALCIUM LEVEL 9.7 MG/DL (8.3-10.6); CARBON DIOXIDE LEVEL 27 MMOL/L (20-31); CHLORIDE LEVEL 100 MMOL/L (98-107); GLOMERULAR FILTRATION RATE 46.3 (>39); GLUCOSE, FASTING 107 MG/DL (74-106); SODIUM LEVEL 136 MMOL/L (136-145)
== END ==
LOC: M SFHCRHEU 15:11
PROVIDERS: ATTEND Internal Medicine Rheumatology
DX: R76.8 Other specified abnormal immunological findings in serum (principal); M25.50 Pain in unspecified joint

== ENCOUNTER → 2024-08-10 | Outpatient (CLI) | payer MEDICARE, OTHER | LOC: M WHC 09:49 | PROVIDERS: ATTEND Nurse Practitioner Family | DX: N31.9 Neuromuscular dysfunction of bladder, unspecified (principal) ==

== ENCOUNTER → 2024-09-20 | Outpatient (REF) | payer MEDICARE, OTHER | LOC: M LAB REF 19:17 | PROVIDERS: ATTEND Student in an Organized Health Care Education/Training Program | DX: R30.0 Dysuria (principal) ==

== ENCOUNTER → 2024-10-03 | Outpatient (CLI) | payer MEDICARE, OTHER ==
[~2024-10-03] MED LIST changes: +AMLO2.5T3 PO; -DULO1CAP6; +DULO1CAP6 PO; -FAMO40TA3; +FAMO40TA3 PO; -MEMA1TAB3; +METH-855 PO; +OLME20TA50 PO; +SIME1CHW5 PO
== END ==
LOC: M WUC 12:45
PROVIDERS: ATTEND Nurse Practitioner Family
DX: Z01.818 Encounter for other preprocedural examination (principal)

== ENCOUNTER → 2024-10-03 | Outpatient (CLI) | payer MEDICARE, OTHER ==
[2024-10-03 18:49] LABS: HEMATOCRIT 38.1 % (36.0-47.0); MEAN CORPUSCULAR HEMOGLOBIN 31.1 pg (27.0-33.0); MEAN CORPUSCULAR HGB CONC 31.5 g/dl (32.0-36.5); MEAN CORPUSCULAR VOLUME 98.7 fl (80.0-96.0); PLATELET COUNT, AUTOMATED 227 10^3/uL (150-450); RED BLOOD COUNT 3.86 10^6/uL (4.00-5.40)
[2024-10-03 19:13] LABS: ALBUMIN 3.9 G/DL (3.2-5.2); BILIRUBIN,TOTAL 0.4 MG/DL (0.3-1.2); CALCIUM LEVEL 9.3 MG/DL (8.3-10.6); CHOLESTEROL RISK RATIO 3.5 (<5); CREATININE FOR GFR 1.06 MG/DL (0.55-1.30); GLOMERULAR FILTRATION RATE 53.4 (>39); HDL CHOLESTEROL 55.3 MG/DL (>40); LDL CHOLESTEROL 105.1 MG/DL (<100); NON-HDL-C 138.7 MG/DL; POTASSIUM SERUM 5.2 MMOL/L (3.5-5.1); TOTAL PROTEIN 6.9 G/DL (5.7-8.2)
[2024-10-03 20:10] LABS: HEMOGLOBIN A1c 6.2 % (4.0-6.0)
[2024-10-04 06:47] LABS: WHITE BLOOD COUNT 10.2 10^3/uL (4.0-10.0)
== END ==
LOC: M WUC 12:42
PROVIDERS: ATTEND Physician Assistant
DX: E11.9 Type 2 diabetes mellitus without complications (principal); I10 Essential (primary) hypertension; E78.5 Hyperlipidemia, unspecified; Z01.818 Encounter for other preprocedural examination

== ENCOUNTER → 2024-10-19 | Outpatient (CLI) | payer MEDICARE, OTHER | LOC: M EKG 10:58 | PROVIDERS: ATTEND Internal Medicine Cardiovascular Disease | DX: R00.2 Palpitations (principal); R29.6 Repeated falls; R00.0 Tachycardia, unspecified ==

== ENCOUNTER → 2024-10-22 | Outpatient (REF) | payer MEDICARE, OTHER | LOC: M LAB REF 14:31 | PROVIDERS: ATTEND Physician Assistant | DX: R30.0 Dysuria (principal) ==

== ENCOUNTER → 2024-12-07 | Outpatient (REF) | payer MEDICARE, OTHER ==
[~2024-12-07] MED LIST changes: -BUPR-597 PO; +BUPR-766 PO; +BUPR150T15 PO; -BUPR1TAB53 PO; -FLOM0.4C39 PO; +TAMS-18 PO; +TOPI-256 PO; -TOPI25TA10 PO
== END ==
LOC: M SFHCWAGY 16:54
PROVIDERS: ATTEND Nurse Practitioner Family
DX: N95.2 Postmenopausal atrophic vaginitis (principal); N95.0 Postmenopausal bleeding

== ENCOUNTER → 2025-01-30 | Outpatient (REF) | payer MEDICARE, OTHER ==
[~2025-01-30] MED LIST changes: -EQL50TAB2 PO; +MIRA3350 PO; +VITA1TAB82 PO; +[UNRECOGNIZED DRUG - CODE] XX
[2025-01-30 17:18] LABS: ESTIMATED AVERAGE GLUCOSE 131.0 MG/DL (60-110)
== END ==
LOC: M LABWUC 13:52
PROVIDERS: ATTEND Physician Assistant
DX: E11.9 Type 2 diabetes mellitus without complications (principal)

== ENCOUNTER → 2025-02-22 | Outpatient (REF) | payer MEDICARE, OTHER | LOC: M SFHCPLAZ 12:54 | PROVIDERS: ATTEND Nurse Practitioner Family | DX: R10.30 Lower abdominal pain, unspecified (principal) ==

== ENCOUNTER → 2025-04-13 | Outpatient (CLI) | payer MEDICARE, OTHER ==
[~2025-04-13] MED LIST changes: +METH-1100 PO; -METH-855 PO
[2025-04-13 18:07] LABS: PLATELET COUNT, AUTOMATED 239 10^3/uL (150-450)
[2025-04-13 18:40] LABS: ALT/SGPT 33.0 U/L (7.0-40); AST/SGOT 29.0 U/L (<34); CALCIUM LEVEL 9.4 MG/DL (8.3-10.6); CARBON DIOXIDE LEVEL 25.0 MMOL/L (20-31); CHLORIDE LEVEL 100.0 MMOL/L (98-107); CREATININE FOR GFR 1.08 MG/DL (0.55-1.30); GLOMERULAR FILTRATION RATE 52.3 (>39); POTASSIUM SERUM 4.7 MMOL/L (3.5-5.1); SODIUM LEVEL 134.0 MMOL/L (136-145)
== END ==
LOC: M RAD 15:35
PROVIDERS: ATTEND Urology
DX: R33.9 Retention of urine, unspecified (principal)

== ENCOUNTER 2025-05-03 07:09 | Observation (INO) | payer MEDICARE, OTHER ==
[2025-05-03] VITALS (8 sets, daily range): BP systolic 108–154; BP diastolic 52–69; TEMP 97.1–97.5; O2SAT 95–98
[~2025-05-03] VITALS: Ht 152.4 cm; Wt 65.3 kg
[~2025-05-03 07:09] MED LIST changes: +FERR325T81 PO; +FREM225A SQ; +LORA-1041 PO; +PROBCAP2 PO
[2025-05-03] MEDS ORDERED: dexAMETHasone 4 MG/ML 1 ML VIAL As Ordered ONE (07:56)
[2025-05-03] MEDS ORDERED: LIDOCAINE 2% 100 MG/5 ML SDV (FOR ANES.) As Ordered ONE (07:56)
[2025-05-03] MEDS ORDERED: ONDANSETRON 4MG/2ML VIAL As Ordered ONE (07:56)
[2025-05-03] MEDS ORDERED: KETOROLAC 30 MG/ML 1 ML VIAL As Ordered ONE (07:56)
[2025-05-03] MEDS ORDERED: NITR-67 PO (08:19)
[2025-05-03] MEDS: ceFAZolin SOD 2 GM IV ONCE IV ONE (08:50)
[2025-05-03] MEDS ORDERED: ACETAMINOPHEN 1000MG/100ML IV BAG As Ordered ONE (09:01)
[2025-05-03] MEDS: LIDOCAINE 1% MDV 20 ML VIAL As Ordered ONE (09:08)
[2025-05-03] MEDS: ePHEDrine INJ 50 MG/ML 1 ML VIAL IV STA (09:39)
[2025-05-03] MEDS: ALBUTEROL SULFATE 2.5 MG/0.5 ML INH CONCENTRATE NEB SOLN NEB ONE (10:05)
[2025-05-03] MEDS ORDERED: ATROPINE SULF 1 MG/10 ML SYRINGE ONE (10:40)
[2025-05-03] MEDS ORDERED: GLUCOSE 4 GM CHEW PO PRN (11:05)
[2025-05-03] MEDS ORDERED: GLUCAGON INJ 1 MG VIAL SC PRN (11:05)
[2025-05-03] MEDS ORDERED: DEXTROSE 50% 50 ML SYRINGE IV PRN (11:05)
[2025-05-03] MEDS: INSULIN LISPRO (NovoLOG) PER UNIT SC SCH ×2 (12:00→20:22)
[2025-05-03 13:05] LABS: PLATELET COUNT, AUTOMATED 234 10^3/uL (150-450)
[2025-05-03 13:28] LABS: ALT/SGPT 34.0 U/L (7.0-40); AST/SGOT 30.0 U/L (<34); CALCIUM LEVEL 8.5 MG/DL (8.3-10.6); CARBON DIOXIDE LEVEL 25.0 MMOL/L (20-31); CHLORIDE LEVEL 103.0 MMOL/L (98-107); CREATININE FOR GFR 1.03 MG/DL (0.55-1.30); GLOMERULAR FILTRATION RATE 55.3 (>39); POTASSIUM SERUM 4.6 MMOL/L (3.5-5.1); SODIUM LEVEL 138.0 MMOL/L (136-145)
[2025-05-03] MEDS: LR 1,000 ML IV SCH (14:15)
[2025-05-03] MEDS ORDERED: FLUT15.820 NARES (17:36)
[2025-05-03] MEDS ORDERED: HOME MED LIST COMPLETE! XX SCH (17:40)
[2025-05-03] MEDS: ALPRAZolam 0.5 MG TAB PO PRN (17:52)
[2025-05-03] MEDS: DOCUSATE SODIUM 100 MG CAPSULE PO SCH (20:25)
[2025-05-03] MEDS: FAMOTIDINE 20 MG TAB PO SCH (20:25)
[2025-05-04] VITALS (7 sets, daily range): BP systolic 113–156; BP diastolic 55–78; TEMP 96.9–98.8; O2SAT 94–98
[2025-05-04] MEDS: ATORVASTATIN 20 MG TAB PO SCH (08:28)
[2025-05-04] MEDS: MEMANTINE 5 MG TABLET PO SCH (08:28)
[2025-05-04] MEDS: OLMESARTAN MEDOXOMIL 20 MG TAB PO SCH (08:29)
[2025-05-04] MEDS: buPROPion **XL** 150 MG TABLET PO SCH (08:29)
[2025-05-04] MEDS: ACETAMINOPHEN 325 MG TAB PO PRN (08:49)
[2025-05-04] MEDS ORDERED: OXYB5TAB14 PO (10:51)
[2025-05-04] MEDS ORDERED: PYRI1TAB5 PO (10:51)
[2025-05-04] MEDS: oxyBUTYnin *XL* 5 MG TAB PO SCH (17:25)
[2025-05-05 04:08] VITALS: BP 141/66; TEMP 97.1; O2SAT 97
[2025-05-05 07:47] VITALS: BP 147/71; TEMP 97.3; O2SAT 97
[2025-05-05] MEDS: SOLIFENACIN 5 MG TAB PO SCH (11:05)
[2025-05-05] MEDS: PNEUMOC 21-VAL CONJ-DIP CRM/PF 0.5 ML SYRINGE IM.IMMUN ONE (11:06)
[2025-05-05 12:03] VITALS: BP 148/70; TEMP 96.8; O2SAT 97
[2025-05-05 16:04] VITALS: BP 158/71; TEMP 97.1; O2SAT 96
[2025-05-05 19:35] VITALS: BP 162/90; TEMP 97.2; O2SAT 96
[2025-05-06] VITALS (7 sets, daily range): BP systolic 143–159; BP diastolic 68–85; TEMP 97.2–98.3; O2SAT 95–99
[2025-05-06 07:43] LABS: CALCIUM LEVEL 8.8 MG/DL (8.3-10.6); CARBON DIOXIDE LEVEL 30.0 MMOL/L (20-31); CHLORIDE LEVEL 102.0 MMOL/L (98-107); CREATININE FOR GFR 0.98 MG/DL (0.55-1.30); GLOMERULAR FILTRATION RATE 58.7 (>39); MAGNESIUM LEVEL 1.8 MG/DL (1.8-2.4); POTASSIUM SERUM 5.0 MMOL/L (3.5-5.1); SODIUM LEVEL 139.0 MMOL/L (136-145)
[2025-05-07 04:02] VITALS: BP 154/74; TEMP 97.5; O2SAT 97
[2025-05-07 07:46] VITALS: BP 140/72; TEMP 97.4; O2SAT 96
[2025-05-07 09:01] VITALS: BP 140/72
[2025-05-07] MEDS ORDERED: SOLI5TAB PO (11:11)
[2025-05-07 12:13] VITALS: BP 145/64; TEMP 96.9; O2SAT 96
== END 2025-05-07 14:19 | disposition home or self-care (01) ==
LOC: M SDC 07:09 → M RR INP 10:39 → M PCU 14:01
PROVIDERS: ADMIT Student in an Organized Health Care Education/Training Program; ATTEND Student in an Organized Health Care Education/Training Program
DX: I97.191 Other postprocedural cardiac functional disturbances following other surgery (principal); R33.9 Retention of urine, unspecified; N31.9 Neuromuscular dysfunction of bladder, unspecified; I10 Essential (primary) hypertension; E11.9 Type 2 diabetes mellitus without complications; E78.5 Hyperlipidemia, unspecified; F41.9 Anxiety disorder, unspecified; F32.A Depression, unspecified; D64.9 Anemia, unspecified; K59.00 Constipation, unspecified; Z23 Encounter for immunization; H35.30 Unspecified macular degeneration; K21.9 Gastro-esophageal reflux disease without esophagitis; G43.909 Migraine, unspecified, not intractable, without status migrainosus; Z91.041 Radiographic dye allergy status; Z88.2 Allergy status to sulfonamides; Z79.84 Long term (current) use of oral hypoglycemic drugs; Z79.899 Other long term (current) drug therapy
CPT/HCPCS: 36415; 51102; 53660; 71045; 80048; 80053; 83735; 85027; 90684; 93005; 93306; G0009; G0378; J0131; J0461; J0688; J1100; J1815; J1885; J2405; J3010

== ENCOUNTER → 2025-06-03 | Outpatient (REF) | payer MEDICARE, OTHER ==
[~2025-06-03] MED LIST changes: +FLUT15.820 NARES; +NITR-67 PO; +OXYB5TAB14 PO; +PYRI1TAB5 PO; +SOLI5TAB PO
== END ==
LOC: M LAB REF 12:04
PROVIDERS: ATTEND Registered Nurse
DX: N39.0 Urinary tract infection, site not specified (principal)

== ENCOUNTER → 2025-07-02 | Outpatient (CLI) | payer MEDICARE, OTHER ==
[2025-07-02 19:20] LABS: BASO # 0.0 10^3/uL (0.0-0.2); BASO % 0.3 % (0.0-1.0); EOS # 0.2 10^3/uL (0.0-0.5); EOS % 2.3 % (0.0-3.0); LYMPH # 1.3 10^3/uL (1.5-5.0); LYMPH % 16.5 % (24.0-44.0); MONO # 0.6 10^3/uL (0.0-0.8); MONO % 7.7 % (2.0-8.0); NEUTROPHILS # 5.7 10^3/uL (1.5-8.5); NEUTROPHILS % 72.9 % (36.0-66.0); PLATELET COUNT, AUTOMATED 251 10^3/uL (150-450)
[2025-07-02 19:33] LABS: ALT/SGPT 25 U/L (7.0-40); AST/SGOT 26 U/L (<34); CALCIUM LEVEL 9.1 MG/DL (8.3-10.6); CARBON DIOXIDE LEVEL 23 MMOL/L (20-31); CHLORIDE LEVEL 100 MMOL/L (98-107); CREATININE FOR GFR 1.19 MG/DL (0.55-1.30); GLOMERULAR FILTRATION RATE 46.5 (>39); POTASSIUM SERUM 4.6 MMOL/L (3.5-5.1); SODIUM LEVEL 134 MMOL/L (136-145)
[2025-07-02 20:26] LABS: C REACTIVE PROTEIN QUANTITATIV < 0.50 MG/DL (<1.0)
== END ==
LOC: M WUC 13:16
PROVIDERS: ATTEND Internal Medicine Rheumatology
DX: R76.89 Other specified abnormal immunological findings in serum (principal); M25.50 Pain in unspecified joint; H04.123 Dry eye syndrome of bilateral lacrimal glands; R77.8 Other specified abnormalities of plasma proteins

== ENCOUNTER → 2025-07-13 | Outpatient (REF) | payer MEDICARE, OTHER ==
[2025-07-13 17:33] LABS: APPEARANCE, URINE HAZY (CLEAR); BACTERIA, URINE AUTO 1+ (NEGATIVE); BILIRUBIN, URINE AUTO NEGATIVE (NEGATIVE); BLOOD, URINE BLOOD NEGATIVE (NEGATIVE); GLUCOSE, URINE (UA) AUTO NEGATIVE (NEGATIVE); KETONE, URINE AUTO NEGATIVE (NEGATIVE); LEUKOCYTE ESTERASE, URINE AUTO 3+ (NEGATIVE); NITRITE, URINE AUTO NEGATIVE (NEGATIVE); PROTEIN, URINE AUTO NEGATIVE (NEGATIVE); RBC, URINE AUTO 3 /HPF (0-3); SPECIFIC GRAVITY URINE AUTO 1.012 (1.002-1.035); SQUAMOUS EPITHELIAL CELL UR AU 0 /HPF (0-6); UROBILINOGEN, URINE AUTO 0.2 mg/dL (0.0-2.0); WBC, URINE AUTO 71 /HPF (0-3)
== END ==
LOC: M SMT 16:41
PROVIDERS: ATTEND Urology
DX: N39.0 Urinary tract infection, site not specified (principal)